=== PATIENT | female | born 1965 | race Caucasian/White ===

== ENCOUNTER 2017-06-07 14:53 | Inpatient (IN) | payer BC ==
[2017-06-07] MEDS ORDERED: SODIUM CHLORIDE 0.9% 1,000 ML IV STA ×2 (15:18→15:19)
[2017-06-07] MEDS ORDERED: ONDANSETRON ODT 8 MG TAB.RAPDIS PO STA (15:18)
[2017-06-07] MEDS ORDERED: MORPHINE SULFATE 4MG/4ML SYRG IVP STA (15:19)
[2017-06-07] MEDS ORDERED: KETOROLAC 30 MG/ML 1 ML VIAL IVP STA (15:19)
--- NOTE | 2017-06-07 15:33 | ED ---
General Adult HPI - General Source: patient, RN notes reviewed, old records reviewed Mode of arrival: wheelchair Limitations: no limitations <Shaq Johnson - Last Filed: 06/07/17 17:19> <Seth Santos - Last Filed: 06/07/17 17:29> - General Chief complaint: Abdominal Pain Stated complaint: Kidney Stone Time Seen by Provider: 06/07/17 15:09 - History of Present Illness Initial comments: Patient 52-year-old female presents into the emergency room today with a chief complaint of increased left-sided flank pain. She states symptoms started last night. She states she did go to [facility]. Had a CAT scan obtained saw a 1 cm stone on the left side. States that she was discharged advised follow-up with her urologist today. Patient does admit that she called the office was advised come here to the emergency room. Patient does admit to pain in the left flank area. This to nausea vomiting. States she has seen some blood in her urine. Patient denies any other complaints currently. Patient states she had a CT which did reveal kidney stones approximately 3 weeks ago from the family physician due to some hematuria. She states she is scheduled for lithotripsy July 01. She states left flank pain did not start until last night. Patient denies any recent fever, chills, shortness of breath, chest pain , numbness or tingling, dysuria, constipation or diarrhea, headaches or visual changes, or any other complaints. (Shaq Johnson) - Related Data Home Medications Medication Instructions Recorded Confirmed Multivitamins, Thera [Multivitamin] 1 tab PO DAILY 03/09/14 06/07/17 ALPRAZolam [Xanax] 0.25 mg PO HS 06/07/17 06/07/17 Biotin 5 mg PO DAILY 06/07/17 06/07/17 Calcium Carbonate [Calcium] 600 mg PO DAILY 06/07/17 06/07/17 HYDROcodone/APAP 5-325MG [[place] 1 tab PO Q6HR PRN 06/07/17 06/07/17 5-325] Ondansetron HCl [Zofran] 8 mg PO BID PRN 06/07/17 06/07/17 Topiramate [Topamax] 25 mg PO BID 06/07/17 06/07/17 Allergies Allergy/AdvReac Type Severity Reaction Status Date / Time No Known Allergies Allergy Verified 06/07/17 15:05 Review of Systems ROS Other: All systems not noted in ROS Statement are negative. <Shaq Johnson - Last Filed: 06/07/17 17:19> ROS Other: All systems not noted in ROS Statement are negative. <Seth Santos - Last Filed: 06/07/17 17:29> ROS Statement: Those systems with pertinent positive or pertinent negative responses have been documented in the HPI. Past Medical History Past Medical History: No Reported History History of Any Multi-Drug Resistant Organisms: None Reported Past Surgical History: Cholecystectomy, Hysterectomy, Tonsillectomy Past Psychological History: No Psychological Hx Reported Smoking Status: Current every day smoker Past Alcohol Use History: Occasional Past Drug Use History: None Reported <Shaq Johnson - Last Filed: 06/07/17 17:19> General Exam Limitations: no limitations <Shaq Johnson - Last Filed: 06/07/17 17:19> <Seth Santos - Last Filed: 06/07/17 17:29> - General Exam Comments Initial Comments: General: The patient is awake and alert, in mild discomfort. Eye: Pupils are equal, round and reactive to light, extra-ocular movements are intact. No nystagmus. There is normal conjunctiva bilaterally. Ears, nose, mouth and throat: There are moist mucous membranes and no oral lesions. Neck: The neck is supple, there is no tenderness or JVD. Cardiovascular: There is a regular rate and rhythm. No murmur, rub or gallop is appreciated. Respiratory: Lungs are clear to auscultation, respirations are non-labored, breath sounds are equal. No wheezes, stridor, rales, or rhonchi. Gastrointestinal: Abdomen soft on palpation. Patient mild tenderness left lower quadrant. Increased left-sided CVA tenderness. No rebound tenderness. No guarding. Musculoskeletal: Normal ROM, no tenderness. Strength 5/5. Sensation intact. Pulses equal bilaterally 2+. Neurological: A&O x 3. CN II-XII intact, There are no obvious motor or sensory deficits. Coordination appears grossly intact. Speech is normal. Skin: Skin is warm and dry and no rashes or lesions are noted. Psychiatric: Cooperative, appropriate mood & affect, normal judgment. (Shaq Johnson) Course <Shaq Johnson - Last Filed: 06/07/17 17:19> <Seth Santos - Last Filed: 06/07/17 17:29> Vital Signs 06/07/17 14:56 Temperature 99.4 F Pulse Rate 95 Respiratory 18 Rate Blood Pressure 129/71 O2 Sat by Pulse 97 Oximetry - Reevaluation(s) Reevaluation #1: 06/07/17 17:28 PA supervision: I did personally do a [id number] evaluation the patient did discuss findings with her and her . I did review the imaging results. I did discuss case with Dr. Mosquera. The patient is having recurrent pain and will be admitted for pain control and likely lithotripsy in 3 days. (Seth Santos) Medical Decision Making - Lab Data Result diagrams: 06/07/17 15:40 06/07/17 15:40 <Shaq Johnson - Last Filed: 06/07/17 17:19> - Lab Data Result diagrams: 06/07/17 15:40 06/07/17 15:40 <Seth Santos - Last Filed: 06/07/17 17:29> - Medical Decision Making Patient's labs been reviewed does show 15,[address] Patient's CT report from [facility] was reviewed showing an 8 mm stone in the left UPJ. Ultrasound obtained here showing mild hydronephrosis. No sign of obstruction. Case discussed and seen by the physician who did discuss case with Dr. Mosquera who will admit the patient. (Shaq Johnson) - Lab Data Lab Results 06/07/17 06/07/17 06/07/17 Range/Units 15:40 15:40 16:39 WBC 15.5 H (3.8-10.6) k/uL RBC 4.23 (3.80-5.40) m/uL Hgb 12.8 (11.4-16.0) gm/dL Hct 37.4 (34.0-46.0) % MCV 88.4 (80.0-100.0) fL MCH 30.2 (25.0-35.0) pg MCHC 34.2 (31.0-37.0) g/dL RDW 12.7 (11.5-15.5) % Plt Count 264 (150-450) k/uL Neutrophils % 80 % Lymphocytes % 14 % Monocytes % 5 % Eosinophils % 0 % Basophils % 0 % Neutrophils # 12.4 H (1.3-7.7) k/uL Lymphocytes # 2.1 (1.0-4.8) k/uL Monocytes # 0.7 (0-1.0) k/uL Eosinophils # 0.0 (0-0.7) k/uL Basophils # 0.0 (0-0.2) k/uL Sodium 143 (137-145) mmol/L Potassium 4.3 (3.5-5.1) mmol/L Chloride 109 H (98-107) mmol/L Carbon Dioxide 19 L (22-30) mmol/L Anion Gap 15 mmol/L BUN 18 H (7-17) mg/dL Creatinine 1.00 (0.52-1.04) mg/dL Est GFR (CKD-EPI)AfAm 75 (>60 ml/min/1.73 sqM) Est GFR (CKD-EPI)NonAf 65 (>60 ml/min/1.73 sqM) Glucose 101 H (74-99) mg/dL Calcium 9.3 (8.4-10.2) mg/dL Total Bilirubin 0.4 (0.2-1.3) mg/dL AST 33 (14-36) U/L ALT 46 (9-52) U/L Alkaline Phosphatase 61 (38-126) U/L Total Protein 6.5 (6.3-8.2) g/dL Albumin 3.9 (3.5-5.0) g/dL Amylase 65 (30-110) U/L Lipase 109 (23-300) U/L Urine Color Light Yellow Urine Appearance Clear (Clear) Urine pH 6.5 (5.0-8.0) Ur Specific [place] 1.013 (1.001-1.035) Urine Protein Negative (Negative) Urine Glucose (UA) Negative (Negative) Urine Ketones 3+ H (Negative) Urine Blood Negative (Negative) Urine Nitrite Negative (Negative) Urine Bilirubin Negative (Negative) Urine Urobilinogen <2.0 (<2.0) mg/dL Ur Leukocyte Esterase Negative (Negative) Disposition Time of Disposition: 17:24 <Shaq Johnson - Last Filed: 06/07/17 17:19> <Seth Santos - Last Filed: 06/07/17 17:29> Clinical Impression: Kidney stone Disposition: ADMITTED IP TO THIS HOSP Condition: Good Referrals: Parag Hsu MD [Primary Care Provider] - 1-2 days
[2017-06-07 15:58] LABS: Basophils % (A) 0 %; Eosinophils % (A) 0 %; HCT 37.4 % (34.0-46.0); HGB 12.8 gm/dL (11.4-16.0); Lymphocytes # (A) 2.1 k/uL (1.0-4.8); Lymphocytes % (A) 14 %; MCH 30.2 pg (25.0-35.0); MCHC 34.2 g/dL (31.0-37.0); MCV 88.4 fL (80.0-100.0); Monocytes # (A) 0.7 k/uL (0-1.0); Monocytes % (A) 5 %; Neutrophils # (A) 12.4 k/uL (1.3-7.7); Neutrophils % (A) 80 %; Platelet Count 264 k/uL (150-450); RBC 4.23 m/uL (3.80-5.40); RDW 12.7 % (11.5-15.5); WBC 15.5 k/uL (3.8-10.6)
[2017-06-07 16:14] LABS: Albumin 3.9 g/dL (3.5-5.0); Calcium 9.3 mg/dL (8.4-10.2); Potassium 4.3 mmol/L (3.5-5.1); Total Bilirubin 0.4 mg/dL (0.2-1.3); Total Protein 6.5 g/dL (6.3-8.2)
--- NOTE | 2017-06-07 16:40 | US ---
EXAMINATION TYPE: US kidneys/renal and bladder DATE OF EXAM: 06/07/2017 COMPARISON: Outside CT in PACS CLINICAL HISTORY: Pain. Known renal stones EXAM MEASUREMENTS: Right Kidney: 11.7 x 4.9 x 4.8 cm Left Kidney: 11.9 x 6.0 x 6.0 cm Right Kidney: No hydronephrosis. Multiple echogenic foci visualized, largest measuring 0.6 cm Left Kidney: Mild amount of hydronephrosis visualized. Multiple small echogenic foci visualized throu ghout kidney. Within the left renal pelvis, there appears to be a possible stone visualized measuring 0.9 cm Bladder: wnl as visualized Bilateral Jets seen: No IMPRESSION: 1. Mild left hydronephrosis. 2. Echogenic foci compatible with renal stones in the left kidney. Possible renal pelvis stone measur ing 0.9 cm is present. Consider CT for additional evaluation. 3. Nonobstructing right renal stones.
--- NOTE | 2017-06-07 16:48 | XR ---
EXAMINATION TYPE: XR KUB DATE OF EXAM: 06/07/2017 COMPARISON: NONE HISTORY: Left-sided kidney stones. Pain. TECHNIQUE: 2 views FINDINGS: There are several calcifications over the left kidney to measure up to 7 mm. There are clip s from cholecystectomy. Bowel gas pattern is normal. There is no sign of intestinal obstruction or pn eumoperitoneum. Fecal pattern is normal. Lung bases are clear. IMPRESSION: Nonacute abdomen. Left renal calcifications.
[2017-06-07 16:49] LABS: Appearance,Urine Clear (Clear); Bilirubin,Urine Negative (Negative); Blood,Urine Negative (Negative); Color,Urine Light Yellow; Glucose,Urine (UA) Negative (Negative); Ketones,Urine 3+ (Negative); Leukocyte Esterase,Urine Negative (Negative); Nitrite,Urine Negative (Negative); PH, Urine 6.5 (5.0-8.0); Protein,Urine Negative (Negative); Specific Gravity,Urine 1.013 (1.001-1.035); Urobilinogen,Urine <2.0 mg/dL (<2.0)
[2017-06-07] MEDS ORDERED: SODIUM CHLORIDE 0.9% 1,000 ML IV ONE (17:24)
[2017-06-07] MEDS ORDERED: NALOXONE 0.4 MG/ML 1 ML VIAL IV PRN (17:24)
[2017-06-07] MEDS: MORPHINE ORAL SOLN 10 MG/5 ML CUP PO PRN (20:06)
[2017-06-07] MEDS: MAG HYDROX/AL HYDROX/SIMETH 30 ML CUP PO PRN (21:10)
[2017-06-07] MEDS: ALPRAZolam 0.25 MG TAB PO SCH (21:10)
[2017-06-07] MEDS: TOPIRAMATE 25 MG TAB PO SCH (21:10)
[2017-06-07] MEDS: METOCLOPRAMIDE 5 MG/ML 2 ML VIAL IVP PRN (21:10)
[2017-06-08] MEDS: MORPHINE ORAL SOLN 10 MG/5 ML CUP PO PRN ×6 (00:49→22:41)
[2017-06-08 04:23] VITALS: BMI 26.0
[2017-06-08] MEDS: MAG HYDROX/AL HYDROX/SIMETH 30 ML CUP PO PRN ×5 (04:32→20:27)
[2017-06-08] MEDS: HYDROcodone/APAP 5-325MG 1 EACH TAB PO PRN ×3 (06:16→20:27)
[2017-06-08 07:52] LABS: Basophils % (A) 0 %; Eosinophils # (A) 0.2 k/uL (0-0.7); Eosinophils % (A) 2 %; HCT 36.8 % (34.0-46.0); HGB 11.6 gm/dL (11.4-16.0); Lymphocytes % (A) 27 %; MCH 29.2 pg (25.0-35.0); MCHC 31.6 g/dL (31.0-37.0); MCV 92.5 fL (80.0-100.0); Mean Platelet Volume 7.7; Monocytes # (A) 0.6 k/uL (0-1.0); Monocytes % (A) 6 %; Neutrophils % (A) 64 %; Platelet Count 219 k/uL (150-450); RBC 3.97 m/uL (3.80-5.40); RDW 12.8 % (11.5-15.5)
[2017-06-08 07:55] LABS: Albumin 3.4 g/dL (3.5-5.0); Calcium 8.7 mg/dL (8.4-10.2); Potassium 4.3 mmol/L (3.5-5.1); Total Bilirubin 0.3 mg/dL (0.2-1.3); Total Protein 5.7 g/dL (6.3-8.2)
[2017-06-08] MEDS: METOCLOPRAMIDE 5 MG/ML 2 ML VIAL IVP PRN (08:41)
[2017-06-08] MEDS: TOPIRAMATE 25 MG TAB PO SCH ×2 (08:42→22:42)
--- NOTE | 2017-06-08 10:49 | P.GSHP ---
History of Present Illness H&P Date: 06/08/17 Chief Complaint: Left flank pain The patient is a 52 year old WF whopresented with hematuria. A CT scan revealed a 5 mm right midpole calculus, and 2 left lower pole calculi measuring 1 and 4 mm. Additionally, there is evidence of left hydronephrosis due to an 8 mm left UPJ calculus. She denies any prior history of urolithiasis. She was seen in the office and scheduled to undergo ESWL next month. However, she was admitted yesterday with intractable symptoms. She has no prior history of urolithiasis. - Constitutional Constitutional: Reports chills, Denies fever - Cardiovascular Cardiovascular: Denies shortness of breath - Gastrointestinal Gastrointestinal: Reports nausea, Denies vomiting - Genitourinary (Female) Genitourinary: Reports kidney stones, Denies dysuria, Denies hematuria Past Medical History Past Medical History: No Reported History Additional Past Medical History / Comment(s): past migraines, gestational diabetes 1989,past gerd,kidney stone, ibs, colitis, diverticulits. in past had episodes of confusion,migraines had saw neurologist, few years ago mri "lesions on brain" they did'nt progress and pt no longer has symptoms. History of Any Multi-Drug Resistant Organisms: None Reported Past Surgical History: Cholecystectomy, Hysterectomy, Tonsillectomy Additional Past Surgical History / Comment(s): rt thumb trigger finger sx Past Anesthesia/Blood Transfusion Reactions: No Reported Reaction Past Psychological History: No Psychological Hx Reported Additional Psychological History / Comment(s): pt is independant. lives with boy friend. works as nurse at [employer]. Smoking Status: Current every day smoker Past Alcohol Use History: Occasional Additional Past Alcohol Use History / Comment(s): started smoking 1978 currently smoking 1/2 ppd. Past Drug Use History: None Reported - Past Family History Sister(s) Family Medical History: Cancer Additional Family Medical History / Comment(s): breast ca Father Family Medical History: Cancer Additional Family Medical History / Comment(s): prostate cancer Medications and Allergies Home Medications Medication Instructions Recorded Confirmed Type Multivitamins, Thera [Multivitamin] 1 tab PO DAILY 03/09/14 06/07/17 History ALPRAZolam [Xanax] 0.25 mg PO HS 06/07/17 06/07/17 History Biotin 5 mg PO DAILY 06/07/17 06/07/17 History Calcium Carbonate [Calcium] 600 mg PO DAILY 06/07/17 06/07/17 History HYDROcodone/APAP 5-325MG [[place] 1 tab PO Q6HR PRN 06/07/17 06/07/17 History 5-325] Ondansetron HCl [Zofran] 8 mg PO BID PRN 06/07/17 06/07/17 History Topiramate [Topamax] 25 mg PO BID 06/07/17 06/07/17 History Allergies Allergy/AdvReac Type Severity Reaction Status Date / Time No Known Allergies Allergy Verified 06/07/17 15:05 Surgical - Exam Vital Signs Temp Pulse Resp BP Pulse Ox 99.4 F 95 18 129/71 97 06/07/17 14:56 06/07/17 14:56 06/07/17 14:56 06/07/17 14:56 06/07/17 14:56 - General well developed, well nourished, moderate pain - Respiratory normal respiratory effort - Abdomen Abdomen: soft, tender (LUQ and left CVA tenderness), no guarding, no rigid, no rebound - Psychiatric oriented to time, oriented to person, oriented to place, speech is normal, memory intact Results - Labs 06/08/17 06:43 06/08/17 06:43 Abnormal Lab Results - Last 24 Hours (Table) 06/07/17 06/07/17 06/07/17 Range/Units 15:40 15:40 16:39 WBC 15.5 H (3.8-10.6) k/uL Neutrophils # 12.4 H (1.3-7.7) k/uL Chloride 109 H (98-107) mmol/L Carbon Dioxide 19 L (22-30) mmol/L BUN 18 H (7-17) mg/dL Glucose 101 H (74-99) mg/dL Urine Ketones 3+ H (Negative) Diabetes panel 06/07/17 Range/Units 15:40 Sodium 143 (137-145) mmol/L Potassium 4.3 (3.5-5.1) mmol/L Chloride 109 H (98-107) mmol/L Carbon Dioxide 19 L (22-30) mmol/L BUN 18 H (7-17) mg/dL Creatinine 1.00 (0.52-1.04) mg/dL Glucose 101 H (74-99) mg/dL Calcium 9.3 (8.4-10.2) mg/dL AST 33 (14-36) U/L ALT 46 (9-52) U/L Alkaline Phosphatase 61 (38-126) U/L Total Protein 6.5 (6.3-8.2) g/dL Albumin 3.9 (3.5-5.0) g/dL Calcium panel 06/07/17 Range/Units 15:40 Calcium 9.3 (8.4-10.2) mg/dL Albumin 3.9 (3.5-5.0) g/dL Pituitary panel 06/07/17 Range/Units 15:40 Sodium 143 (137-145) mmol/L Potassium 4.3 (3.5-5.1) mmol/L Chloride 109 H (98-107) mmol/L Carbon Dioxide 19 L (22-30) mmol/L BUN 18 H (7-17) mg/dL Creatinine 1.00 (0.52-1.04) mg/dL Glucose 101 H (74-99) mg/dL Calcium 9.3 (8.4-10.2) mg/dL Adrenal panel 06/07/17 Range/Units 15:40 Sodium 143 (137-145) mmol/L Potassium 4.3 (3.5-5.1) mmol/L Chloride 109 H (98-107) mmol/L Carbon Dioxide 19 L (22-30) mmol/L BUN 18 H (7-17) mg/dL Creatinine 1.00 (0.52-1.04) mg/dL Glucose 101 H (74-99) mg/dL Calcium 9.3 (8.4-10.2) mg/dL Total Bilirubin 0.4 (0.2-1.3) mg/dL AST 33 (14-36) U/L ALT 46 (9-52) U/L Alkaline Phosphatase 61 (38-126) U/L Total Protein 6.5 (6.3-8.2) g/dL Albumin 3.9 (3.5-5.0) g/dL Assessment and Plan (1) Hydronephrosis with renal and ureteral calculus obstruction Current Visit: Yes Status: Acute Code(s): N13.2 - HYDRONEPHROSIS WITH RENAL AND URETERAL CALCULOUS OBSTRUCTION SNOMED Code(s): 753384310 Plan: The patient is admitted with intractable symptoms related to her left UPJ calculus. I had a lengthy discussion with the patient, reviewing the options of stent placement with subsequent elective ureteroscopy with laser lithotripsy versus ESWL. She has elected to go undergo ESWL on 06/10/2017. She is hopeful that she will be discharged home postoperatively. The procedure was reviewed in detail with her. Potential risks were also discussed, including anesthesia, renal contusion, perinephric hematoma, [place], and treatment failure. Time with Patient: Greater than 30
[2017-06-08] MEDS: ALPRAZolam 0.25 MG TAB PO SCH (22:41)
[2017-06-09] MEDS: HYDROcodone/APAP 5-325MG 1 EACH TAB PO PRN ×5 (02:03→21:46)
[2017-06-09] MEDS: MORPHINE ORAL SOLN 10 MG/5 ML CUP PO PRN ×5 (03:26→20:46)
[2017-06-09] MEDS: ONDANSETRON 4 MG/2 ML VIAL IVP PRN ×2 (06:54→18:06)
[2017-06-09] MEDS: TOPIRAMATE 25 MG TAB PO SCH ×2 (08:17→21:46)
[2017-06-09] MEDS: METOCLOPRAMIDE 5 MG/ML 2 ML VIAL IVP PRN (11:22)
[2017-06-09] MEDS ORDERED: MAGNESIUM HYDROXIDE 2,400 MG/10 ML CUP PO PRN (12:41)
--- NOTE | 2017-06-09 12:43 | P.PN ---
Progress Note - Text Progress Note Date: 06/09/17 Mrs. Altman reports persistent intermittent left flank pain, severe at times. She also reports constipation. She denies dysuria and hematuria. She reports mild nausea, which she attributes to the pain. She is afebrile. Milk of magnesia has been ordered, and she will undergo ESWL tomorrow. In the meantime , she will continue to be treated with IV hydration and parenteral analgesics.
[2017-06-09] MEDS: MAG HYDROX/AL HYDROX/SIMETH 30 ML CUP PO PRN (12:57)
[2017-06-09 16:16] VITALS: RESP 16
[2017-06-09] MEDS: ALPRAZolam 0.25 MG TAB PO SCH (21:46)
[2017-06-10] MEDS: MORPHINE ORAL SOLN 10 MG/5 ML CUP PO PRN ×3 (00:44→11:11)
[2017-06-10] MEDS: HYDROcodone/APAP 5-325MG 1 EACH TAB PO PRN ×3 (02:31→15:55)
[2017-06-10] MEDS: TOPIRAMATE 25 MG TAB PO SCH (07:45)
[2017-06-10] MEDS ORDERED: IV FLUID CONTINUATION 700 ML IV ONE (13:16)
[2017-06-10] MEDS ORDERED: fentaNYL (PF) 50 MCG/ML 2 ML AMP ONE (13:16)
[2017-06-10] MEDS ORDERED: PROPOFOL 10 MG/ML 20 ML VIAL IV ONE (13:16)
[2017-06-10] MEDS ORDERED: MIDAZOLAM 2 MG/2 ML VIAL ONE (13:16)
--- NOTE | 2017-06-10 13:59 | P.OP ---
Date of Procedure: 06/10/17 Preoperative Diagnosis: Left renal calculus Postoperative Diagnosis: Left renal calculus Procedure(s) Performed: Extracorporal shockwave lithotripsy Anesthesia: MAC Surgeon: Jassi Ashton Estimated Blood Loss (ml): 0 Pathology: none sent Condition: stable Disposition: PACU Indications for Procedure: The patient is a 52 year old female with hematuria and left flank pain secondary to a 5x8 mm calculus at the left ureteropelvic junction. She was admitted on 06/07 for pain control. Treatment option for the left renal calculus were reviewed with Dr Mosquera and the patient has chosen ESWL. Description of Procedure: The patient was taken to the lithotripsy suite and placed supine on the fluoroscopy table. The left renal calculus was localized with biplanar fluoroscopy. Intravenous sedation was given. Lithotrtipsy was performed using the [employer] compact delta unit. The patient received 1500 shocks at 80 shocks/ minute at level 4. A two minute pause was taken at 200 shocks. The calculus appeared to fragment and could not definitely be identified after 1000 shocks. The patient tolerated the procedure well and left the operating room in satisfactory condition. If she is comfortable she will be discharged later in the day.[
[2017-06-10 15:28] VITALS: BP 127/77; PULSE 81; TEMP 98.7
== END 2017-06-10 16:26 | disposition home or self-care (01) | DRG 691 ==
LOC: EC 14:53 → 3SUR 17:23
PROVIDERS: ADMIT Urology; ATTEND Urology
PROC: 0TF4XZZ Fragmentation in Left Kidney Pelvis, External Approach (ICD-10-PCS; principal; 2017-06-10 08:05)
DX: N13.2 Hydronephrosis with renal and ureteral calculous obstruction (principal); F17.210 Nicotine dependence, cigarettes, uncomplicated; K58.9 Irritable bowel syndrome, unspecified; K21.9 Gastro-esophageal reflux disease without esophagitis; Z79.891 Long term (current) use of opiate analgesic; Z79.899 Other long term (current) drug therapy; Z80.42 Family history of malignant neoplasm of prostate; Z80.3 Family history of malignant neoplasm of breast; Z90.89 Acquired absence of other organs; Z90.49 Acquired absence of other specified parts of digestive tract; Z90.710 Acquired absence of both cervix and uterus; Z86.32 Personal history of gestational diabetes; Z87.442 Personal history of urinary calculi; Z87.19 Personal history of other diseases of the digestive system; Z86.69 Personal history of other diseases of the nervous system and sense organs
CPT/HCPCS: 36415; 50590; 74018; 76770; 80053; 81003; 82150; 83690; 85025; 96361; 96374; 96375; 99285